=== PATIENT | female | born 2000 | race Caucasian/White ===

== ENCOUNTER 2022-01-10 01:02 | Emergency (ER) | payer OTHER ==
[~2022-01-10 01:02] MED LIST: SULFATRIM1 ML OR
[2022-01-10 01:33] LABS: HEMATOCRIT 39.5 % (37.0-47.0); HEMOGLOBIN 12.5 g/dl (12.0-16.0); IMMATURE GRANULOCYTES 0.1 % (0.0-5.0); MEAN CORPUSCULAR HGB 28.2 pG CALC (26.0-32.0); MEAN CORPUSCULAR HGB CONC 31.6 g/dL CAL (32.0-36.0); NEUT# 4.65 thou/uL (2.00-7.15); RED BLOOD COUNT 4.44 mill/uL (4.20-5.60); RED CELL DISTRI WIDTH 12.9 % (11.5-15.5)
[2022-01-10 01:54] LABS: ALKALINE PHOSPHATASE 59 u/l (38-126); ANION GAP 13 (6-22 (CALC)); BILIRUBIN, TOTAL 0.3 mg/dL (0.0-1.4); BUN 15 mg/dL (7-17); BUN/CREATININE RATIO 22 (12-20 (CALC)); CARBON DIOXIDE 28 mmol/l (22-30); CHLORIDE 104 mmol/l (95-108); CREATININE 0.7 mg/dL (0.5-1.0); D-DIMER 0.29 mg/L (0.19-0.60); GFR FOR AFR.AMER. > 60 ML/MIN (>=60 (CALC)); GFR OTHER RACES > 60 ML/MIN (>=60 (CALC)); SGOT/AST 34 u/l (14-36); SODIUM 141 mmol/l (137-146); TOTAL PROTEIN 8.7 g/dL (6.3-8.2)
[2022-01-10 01:57] LABS: PROTHROMBIN TIME 9.6 SECONDS (9.0-12.5)
[2022-01-10] MEDS ORDERED: NAPROXEN500 MG PO (02:28)
[2022-01-10 02:42] VITALS: BP 121/64
== END 2022-01-10 03:03 | disposition home or self-care (01) | DRG 313 ==
LOC: ED 01:02
PROVIDERS: Family Medicine
DX: R07.89 Other chest pain (principal)

== ENCOUNTER 2022-03-10 18:12 | Emergency (ER) | payer OTHER ==
[~2022-03-10] VITALS: Ht 152.4 cm; Wt 51.4 kg
[2022-03-10] VITALS (7 sets, daily range): BP systolic 111–136; BP diastolic 61–85
[~2022-03-10 18:12] MED LIST changes: +NAPROXEN500 MG PO
[2022-03-10 19:02] LABS: BASO% 0.2 % (0-3); EOS% 0.2 % (0-8); HEMATOCRIT 34.3 % (37.0-47.0); HEMOGLOBIN 11.5 g/dl (12.0-16.0); IMMATURE GRANULOCYTES 0.2 % (0.0-5.0); LYMPH% 25.2 % (15-41); MEAN CELL VOLUME 86.8 fL CALC (80.0-100.0); MEAN CORPUSCULAR HGB 29.1 pG CALC (26.0-32.0); MEAN CORPUSCULAR HGB CONC 33.5 g/dL CAL (32.0-36.0); MONO% 7.3 % (2-13); NEUT# 8.56 thou/uL (2.00-7.15); NEUT% 66.9 % (42-76); RED BLOOD COUNT 3.95 mill/uL (4.20-5.60); RED CELL DISTRI WIDTH 13.2 % (11.5-15.5)
[2022-03-10 19:13] LABS: ALBUMIN 4.8 g/dL (3.2-5.0); ALKALINE PHOSPHATASE 58 u/l (38-126); AMYLASE 72 u/l (30-110); ANION GAP 13 (6-22 (CALC)); BILIRUBIN, TOTAL 0.2 mg/dL (0.0-1.4); BUN 17 mg/dL (7-17); BUN/CREATININE RATIO 25 (12-20 (CALC)); CARBON DIOXIDE 25 mmol/l (22-30); CHLORIDE 106 mmol/l (95-108); CREATININE 0.7 mg/dL (0.5-1.0); GFR FOR AFR.AMER. > 60 ML/MIN (>=60 (CALC)); GFR OTHER RACES > 60 ML/MIN (>=60 (CALC)); LIPASE 159 u/l (23-300); POTASSIUM 3.6 mmol/l (3.5-5.1); SGOT/AST 33 u/l (14-36); SODIUM 141 mmol/l (137-146); TOTAL PROTEIN 8.3 g/dL (6.3-8.2)
[2022-03-10] MEDS ORDERED: ZPAK PO (20:00)
[2022-03-10] MEDS ORDERED: WELLBUTRIN100 M2 PO (20:01)
[2022-03-10] MEDS ORDERED: [UNRECOGNIZED DRUG - REMARK] (20:02)
== END 2022-03-10 21:08 | disposition home or self-care (01) | DRG 313 ==
LOC: ED 18:12
PROVIDERS: Emergency Medicine
DX: R07.89 Other chest pain (principal); M79.10 Myalgia, unspecified site; R51.9 Headache, unspecified; B34.9 Viral infection, unspecified

== ENCOUNTER 2023-12-01 14:27 | Emergency (ER) | payer OTHER ==
[~2023-12-01] VITALS: Ht 152.4 cm; Wt 60.0 kg
[2023-12-01] VITALS (8 sets, daily range): BP systolic 88–111; BP diastolic 54–81
[~2023-12-01 14:27] MED LIST changes: +WELLBUTRIN100 M2 PO; +ZPAK PO; +[UNRECOGNIZED DRUG - REMARK]
[2023-12-01] MEDS ORDERED: Diph, Acellular Pertussis, Tet 0.5 ML/VIAL (Tdap) SDV IM STA (14:55)
[2023-12-01] MEDS ORDERED: AMOX/K CLAV875 M1 PO (15:54)
== END 2023-12-01 16:24 | disposition home or self-care (01) | DRG 605 ==
LOC: ED 14:27
DX: S61.452A Open bite of left hand, initial encounter (principal); F41.9 Anxiety disorder, unspecified; F32.A Depression, unspecified; W55.01XA Bitten by cat, initial encounter